=== PATIENT | male | born 1950 | race Caucasian/White ===

== ENCOUNTER 2016-10-18 14:24 | Observation (INO) ==
[2016-10-18] MEDS ORDERED: Aspirin 81 MG TAB.CHEW PO ONE (14:35)
--- NOTE | 2016-10-18 14:38 | Emergency Department Note ---
Disposition Clinical Impression: ACS (acute coronary syndrome) Chest pain Qualifiers: Chest pain type: unspecified Qualified Code(s): R07.9 - Chest pain, unspecified Disposition: Admitted As Inpatient Time of Disposition: 15:12 Chest Pain HPI - General Chief Complaint: ED Chest Pain Stated Complaint: Chest pain, MARIPOSA, dizziness Time Seen by Provider: 10/18/16 14:35 Source: patient Mode of arrival: ambulatory Limitations: no limitations Vital Signs Reviewed: Yes Nursing Notes Reviewed: Yes - History of Present Illness HPI Narrative: 65-year-old male who comes in complaining of some chest pain off and on for the last week. Patient states it's exertional in nature when he gets up and does anything he develops pain gets better with rest. Pt complaint: chest pain Onset (ago): day(s) Duration: intermittent Onset: during exertion Pain Location: substernal, left chest Severity: mild, moderate Severity scale (1-10): 2 Quality: tightness, aching Pain Radiation: none Worsens with: exertion Associated symptoms: Reports: dyspnea Treatments prior to arrival chest pain: none - Related Data Home Medications Medication Instructions Recorded Confirmed Albuterol Sulfate [Albuterol 2 puff IH Q6HR 04/06/15 10/18/16 Inhaler] Glimepiride [Amaryl] 4 mg PO BID 04/06/15 10/18/16 Lisinopril 20 mg PO DAILY 04/06/15 10/18/16 Simvastatin 40 mg PO DAILY 04/06/15 10/18/16 Gabapentin [Neurontin] 600 mg PO TID 10/18/16 10/18/16 Mesalamine [Apriso] 0.375 gm PO DAILY 10/18/16 10/18/16 Oxycodone HCl [Roxicodone 30 MG 30 mg PO Q6HR PRN 10/18/16 10/18/16 Immed Release] Topiramate [Topamax] 50 mg PO BID 10/18/16 10/18/16 Allergies Allergy/AdvReac Type Severity Reaction Status Date / Time No Known Allergies Allergy Verified 10/18/16 15:28 All systems ED: reviewed and negative except as stated. Constitutional: Denies: fever, chills, weakness, weight change Eyes: Denies: eye pain, eye discharge, vision change ENT ED: Denies: ear pain, throat pain, dental pain, hearing loss, epistaxis, congestion, dysphagia Cardiovascular: Reports: chest pain. Denies: palpitations, dyspnea on exertion , edema, syncope Respiratory: Denies: cough, dyspnea, wheezes, hemoptysis, stridor Gastrointestinal: Denies: abdominal pain, nausea, vomiting, diarrhea, constipation, hematemesis, melena, hematochezia Genitourinary: Denies: urgency, dysuria, frequency, hematuria Musculoskeletal: Denies: back pain, neck pain, arthralgia, myalgia Integumentary: Denies: rash, abrasion, lesions Neurological: Denies: headache, weakness, numbness, paresthesias, confusion, abnormal gait, vertigo Psychiatric: Denies: anxiety, depression, suicidal thoughts, homicidal thoughts , auditory hallucinations, visual hallucinations Endocrine: Denies: fatigue Hematological/Lymphatic: Denies: easy bleeding, easy bruising Allergic/Immunologic: Denies: facial swelling, urticaria Chest Pain PMH - Past Medical History Medical history: Reports: arthritis, diabetes, hyperlipidemia, hypertension, other Surgical history: Reports: orthopedic, other, other Psychiatric history: Reports: PTSD - Social History Smoking Status: Former smoker Alcohol use: Reports: rarely Drug use: Reports: none Physical Exam - General Limitations: no limitations General appearance: alert - Head Head exam: atraumatic, normocephalic, normal inspection - Eye Eye exam: Present: normal appearance, PERRL, EOMI - ENT ENT exam: normal exam, normal oropharynx, mucous membranes moist - Neck Neck exam: Present: normal inspection, full ROM, trachea midline - Chest Chest inspection: Present: normal inspection, symmetric chest wall rise - Respiratory Respiratory exam: Present: normal lung sounds bilaterally - Cardiovascular Cardiovascular exam: Present: regular rate, normal rhythm, normal heart sounds - Abdominal Exam Abdominal exam: Present: soft, Non-Tender. Absent: tenderness, distention, guarding, rebound, rigidity - Extremities Exam Extremities exam: Present: normal inspection, full ROM. Absent: tenderness, pedal edema - Expanded Lower Extremity Exam Neurovascular/Tendon exam: Absent: motor deficit, sensory deficit, tendon deficit Gait: observed and normal - Back Exam Back exam: Present: normal inspection - Neurological Exam Neurological exam: Present: alert, oriented X3 - Psychiatric Psychiatric exam: Present: normal affect, normal mood - Skin Skin exam: Present: warm, dry, intact, normal color Course - Reevaluation(s) Reevaluation #1: 65-year-old male who describes exertional chest pain that gets better with rest. Getting worse over the last week or so. No history of previous cardiac problems. The patient describes angina. Patient will be admitted to the hospitalist. We will start ACS heparin. The patient is currently pain-free. Time: 15:29 Reevaluation #2: I had a recurrent originally ordered heparin for this patient based on symptomatology however the hospitalist was here and asked me to stop the heparin order which we did patient did not get any heparin. She also requested we order Lipitor 40 mg. Time: 16:03 - Consultations Consultation #1: Discussed with Dr. Rasheed, admit. Time: 15:31 Vital Signs Temperature 97.3 F L 10/18/16 14:29 Pulse Rate 80 10/18/16 14:29 Respiratory Rate 18 10/18/16 14:29 Blood Pressure 151/81 10/18/16 14:29 O2 Sat by Pulse Oximetry 97 10/18/16 14:29 Temperature 97.3 F L 10/18/16 14:29 Pulse Rate 79 10/18/16 15:33 Respiratory Rate 18 10/18/16 15:33 Blood Pressure 122/76 10/18/16 15:33 O2 Sat by Pulse Oximetry 97 10/18/16 15:33 Oxygen Delivery Oxygen Delivery Room Air Chest Pain - Lab Data Result diagrams: 10/18/16 14:37 10/18/16 14:37 Lab Results 10/18/16 10/18/16 10/18/16 Range/Units 14:37 14:37 14:37 WBC 6.8 (4.3-11.1) K/mcL RBC 5.01 (4.19-5.50) M/mcL Hgb 14.3 (12.9-16.9) g/dL Hct 42.1 (37.5-50.1) % MCV 84.0 (83.0-100.0) fL MCH 28.5 (28.0-33.3) pg MCHC 34.0 (31.6-35.5) g/dL RDW 14.3 (11.5-14.5) % Plt Count 225 (140-400) K/mcL MPV 9.5 (9.4-12.4) fL Immature Gran % 0.3 (0-4) % Seg Neutrophils % 61.9 % Lymphocytes % 27.2 % Monocytes % 8.1 % Eosinophils % 1.9 % Basophils % 0.6 % Neutrophils # 4.2 (1.6-8.9) K/mcL Lymphocytes # 1.8 (0.6-4.6) K/mcL Monocytes # 0.6 (0.0-1.3) K/mcL Eosinophils # 0.1 (0.0-0.6) K/mcL Basophils # 0.0 (0.0-0.2) K/mcL PT 12.6 H (9.4-12.1) Seconds INR 1.2 APTT 30.2 (26.0-36.0) Seconds Sodium 137 (136-145) mEq/L Potassium 3.1 L (3.5-4.5) mEq/L Chloride 112 H (98-109) mEq/L Carbon Dioxide 17 L (19-29) mEq/L BUN 9 (8-26) mg/dL Creatinine 0.68 L (0.72-1.25) mg/dL Est GFR ( Amer) > 60 (> 60) Est GFR (Non-Af Amer) > 60 (> 60) BUN/Creatinine Ratio 13 (6-26) Glucose 82 (70-99) mg/dL Calculated Osmolality 282 (280-300) Calcium 7.8 L (8.6-10.8) mg/dL Troponin I (0-0.03) ng/mL 10/18/16 Range/Units 14:37 WBC (4.3-11.1) K/mcL RBC (4.19-5.50) M/mcL Hgb (12.9-16.9) g/dL Hct (37.5-50.1) % MCV (83.0-100.0) fL MCH (28.0-33.3) pg MCHC (31.6-35.5) g/dL RDW (11.5-14.5) % Plt Count (140-400) K/mcL MPV (9.4-12.4) fL Immature Gran % (0-4) % Seg Neutrophils % % Lymphocytes % % Monocytes % % Eosinophils % % Basophils % % Neutrophils # (1.6-8.9) K/mcL Lymphocytes # (0.6-4.6) K/mcL Monocytes # (0.0-1.3) K/mcL Eosinophils # (0.0-0.6) K/mcL Basophils # (0.0-0.2) K/mcL PT (9.4-12.1) Seconds INR APTT (26.0-36.0) Seconds Sodium (136-145) mEq/L Potassium (3.5-4.5) mEq/L Chloride (98-109) mEq/L Carbon Dioxide (19-29) mEq/L BUN (8-26) mg/dL Creatinine (0.72-1.25) mg/dL Est GFR ( Amer) (> 60) Est GFR (Non-Af Amer) (> 60) BUN/Creatinine Ratio (6-26) Glucose (70-99) mg/dL Calculated Osmolality (280-300) Calcium (8.6-10.8) mg/dL Troponin I 0.00 (0-0.03) ng/mL - EKG Data EKG attestation: Yes I reviewed and interpreted this EKG. EKG shows normal: sinus rhythm Rate: normal Rhythm: NSR Interpretation: no acute changes Heart Score - Score History: Moderately Suspicious EKG: Normal Age: 45-65 Risk Factors: 1-2 risk factors Troponin: Less than normal limit HEART Score Total: 3 Critical Care Time Critical Care Time: Yes Total Critical Care Time: 30 Attestation: The high probability of a clinically significant, sudden or life threatening deterioration of the [cardiovascular] system(s) required my full and direct attention, intervention and personal management. The aggregate critical care time was [30] minutes. This time is in addition to time spent performing reported procedures but includes the following: [x] Data Review and interpretation [x] Patient assessment and monitoring of vital signs [x] Documentation [x] Medication orders and management
[2016-10-18 14:51] LABS: Basophils % 0.6 %; Eosinophils # 0.1 K/mcL (0.0-0.6); Eosinophils % 1.9 %; Hematocrit 42.1 % (37.5-50.1); Hemoglobin 14.3 g/dL (12.9-16.9); Immature Granulocytes % 0.3 % (0-4); Lymphocytes # 1.8 K/mcL (0.6-4.6); Lymphocytes % 27.2 %; Mean Corpuscular Hemoglobin 28.5 pg (28.0-33.3); Mean Platelet Volume 9.5 fL (9.4-12.4); Monocytes # 0.6 K/mcL (0.0-1.3); Monocytes % 8.1 %; Neutrophils # 4.2 K/mcL (1.6-8.9); Platelet Count 225 K/mcL (140-400); Red Blood Count 5.01 M/mcL (4.19-5.50); Red Cell Distribution Width 14.3 % (11.5-14.5); Segmented Neutrophils % 61.9 %
[2016-10-18 15:03] LABS: BUN/Creatinine Ratio 13 (6-26); Blood Urea Nitrogen 9 mg/dL (8-26); Calcium 7.8 mg/dL (8.6-10.8); Carbon Dioxide 17 mEq/L (19-29); Chloride 112 mEq/L (98-109); Glucose 82 mg/dL (70-99); INR 1.2; Osmolality,Calculated 282 (280-300); Potassium 3.1 mEq/L (3.5-4.5); Prothrombin Time 12.6 Seconds (9.4-12.1); Sodium 137 mEq/L (136-145); eGFR For African Americans > 60 (> 60); eGFR For Non-African Americans > 60 (> 60)
[2016-10-18 15:05] LABS: Activated Partial Thrombo Time 30.2 Seconds (26.0-36.0)
[2016-10-18] MEDS ORDERED: *HR* Heparin 5,000 UNIT/ML VIAL IVP ONE (15:27)
[2016-10-18] MEDS ORDERED: *HR* Heparin 5,000 UNIT/ML VIAL IVP PRN ×2 (15:27)
[2016-10-18] MEDS ORDERED: Heparin 25,000 UNIT/500 ML D5W 25,000 UNIT/500 ML MLS IVC SCH (15:30)
[2016-10-18] MEDS ORDERED: Naloxone 0.4 MG/ML INJ IVP PRN (16:07)
[2016-10-18] MEDS ORDERED: *HR* Morphine 2 MG/ML SYRINGE IVP PRN (16:07)
[2016-10-18] MEDS ORDERED: Ondansetron 4 MG/2 ML VIAL IVP PRN (16:07)
[2016-10-18] MEDS ORDERED: Nitroglycerin 0.4 MG TAB.SUBL SL PRN (16:09)
[2016-10-18] MEDS ORDERED: *HR* OxyCODONE Immed Rel 15 MG TABLET PO PRN (16:11)
[2016-10-18] MEDS ORDERED: *HR* Dextrose 50 % in Water (Syg) 50 ML SYRINGE IVP PRN (16:12)
[2016-10-18] MEDS ORDERED: D5% in Water 1,000 ML IVC PRN (16:12)
[2016-10-18] MEDS ORDERED: Dextrose Gel 15 GM PO PRN ×2 (16:12)
--- NOTE | 2016-10-18 16:22 | Internal Med History&Physical ---
Date of Encounter: 10/18/16 Time of Encounter: 14:00 Assessment and Plan (1) Chest pain Current visit: Yes Status: Acute Given clinical presentation and associated risk factors, will rule out ACS monitor serial TNI and EKG EKG: NSR First TNI negative f/u 2D echo to evaluate LVEF nuclear stress in am if above tests are positive for any cardiac etiology, consider cardiology eval continue ASA, Statin Nitroglycerin SL prn chest pain NPO after midnight for nuclear stress test in am currently saturating well on room air, if SOB or hypoxia occurs, O2 supplementation as needed Qualifiers: Chest pain type: unspecified Qualified Code(s): R07.9 - Chest pain, unspecified (2) Dizziness Current visit: Yes Status: Acute Will rule out orthostatic hypotension given history will obtain orthostatic vitals closely monitor no dizziness reported at this time if orthostatics negative and cardiac work up negative, consider b/l carotid dopplers to r/o carotid stenosis (3) Metabolic acidosis Current visit: Yes Status: Acute Normal anion gap metabolic acidosis with hyperchloremia Can be multifactorial, given history of GI losses (UC with diarrhea) or Hypokalema (concern for RTA) will closely monitor Clinically asymptomatic if metabolic acidosis worsens and bicarb deficit increases, will supplement bicarb K supplemented will continue to monitor electrolytes and replace as needed (4) Hypokalemia Current visit: Yes Status: Acute K supplemented continue to monitor electrolytes and replace as needed (5) Hypertension Current visit: Yes Status: Chronic BP within acceptable range will continue home medications Qualifiers: Hypertension type: essential hypertension Qualified Code(s): I10 - Essential (primary) hypertension (6) Hyperlipidemia Current visit: Yes Status: Chronic continue statin Qualifiers: Hyperlipidemia type: unspecified Qualified Code(s): E78.5 - Hyperlipidemia , unspecified (7) Diabetes Current visit: No Status: Chronic BG within acceptable range hold oral antihyperglycemic agents will start ss insulin algorithm monitor FS and BG ADA diet Qualifiers: Diabetes mellitus type: type 2 Diabetes mellitus complication status: without complication Diabetes mellitus dispatcher relay insulin use: without dispatcher relay use Qualified Code(s): E11.9 - Type 2 diabetes mellitus without complications (8) DVT prophylaxis Current visit: No Status: Acute Heparin SQ (9) Obesity (BMI 30.0-34.9) Current visit: Yes Status: Chronic Internal Medicine - H&P: HPI Chief complaint: chest pain Admitted From: Home Plans for Post Hospital Care: Home History of present illness: Mr. Zamora is a 65 year old male with PMH of DM, HTN, HLD, arthritis, Ulcerative colitis, obesity who is admitted for evaluation of chest pain. Patient reports of having localized substernal chest pain for the last few weeks with ambulation associated with shortness of breath. He states he recently is tapering down his opiods and initially thought he was going through opioid withdrawals, however as he researched more online, the symptoms were concerning for heart disease due to which he came to the ER for further evaluation. Pain is brought upon with movement and is pressure like and relieved at rest. States for the last few days, he has also been experiencing mild dizziness as he gets up from sitting to standing position. At this time he is resting in bed and denies any chest pain. No family cardiac history reported. Reports of having a nuclear stress test in the past but does not recall the reason and denies any prior symptoms consistent with current presentation. Also reports of having UC and has on and off diarrhea, not present at this time. At this time he is resting in bed and denies any headache, dizziness, lightheadness, chest pain, sob, abd pain, n/v, fever, or chills. Social Hx: Former smoker, smoked for 5 years and quit 40years ago Code status: Full code Past Med Surg Social Fam HX - Past Medical History Medical history: arthritis, diabetes, hyperlipidemia, hypertension, other Psychiatric history: PTSD - Past Surgical History Surgical History: orthopedic, other, other - Social History Smoking Status: Former smoker Smokeless Tobacco Status: No Alcohol use: rarely Drug use: none - Family History Father Living Status: Hx Family Cancer: Yes (leukemia) Mother Living Status: Hx Family Respiratory Disorders: Yes Internal Medicine - H&P: Meds Albuterol Sulfate [Albuterol Inhaler] 2 puff IH Q6HR 04/06/15 [History] Glimepiride [Amaryl] 4 mg PO BID 04/06/15 [History] Lisinopril 20 mg PO DAILY 04/06/15 [History] Simvastatin 40 mg PO DAILY 04/06/15 [History] Gabapentin [Neurontin] 600 mg PO TID 10/18/16 [History] Mesalamine [Apriso] 0.375 gm PO DAILY 10/18/16 [History] Oxycodone HCl [Roxicodone 30 MG Immed Release] 30 mg PO Q6HR PRN 10/18/16 [ History] Topiramate [Topamax] 50 mg PO BID 10/18/16 [History] Allergies No Known Allergies Allergy (Verified 10/18/16 15:28) All Systems PM: A 10-system review of systems was performed and is negative for pertinent findings except as documented above in the HPI. - Constitutional Constitutional: as per HPI - Constitutional Vitals: Temp Pulse Resp BP Pulse Ox 97.3 F L 79 18 128/82 97 10/18/16 14:29 10/18/16 15:33 10/18/16 16:06 10/18/16 16:06 10/18/16 15:33 General appearance: Present: cooperative, A&O X 3, pleasant, no acute distress, obese, answers questions appropriately - Head Head exam: Present: atraumatic, normocephalic - Eye Eye exam: Present: EOMI, normal appearance, conjuntiva pink, sclera anicteric - Respiratory Respiratory exam: Present: CTAB. Absent: accessory muscle use, rales, rhonchi, wheezes - Cardiovascular Cardiovascular exam: Present: RRR, +S1, +S2. Absent: diastolic murmur, gallop, rubs, systolic murmur - GI/Abdominal GI/Abdominal exam: Present: normal bowel sounds, soft, no peritoneal signs. Absent: distended, tenderness - Extremities Exam Extremities exam: Present: warm, radial pulses palpable and symetrical. Absent : calf tenderness, cyanotic, pedal edema - Neurological Exam Neurological exam: Present: alert, oriented X3 - Psychiatric Psychiatric exam: Present: normal affect, normal mood Internal Med - H&P Results - Labs CBC & Chem 7: 10/18/16 14:37 10/18/16 14:37
[2016-10-18] MEDS: Insulin LISPRO 300 UNITS/3 ML VIAL SQ SCH (17:01)
[2016-10-18] MEDS ORDERED: Acetaminophen 325 MG TABLET PO PRN (17:02)
[2016-10-18] MEDS: Gabapentin 300 MG CAPSULE PO SCH (20:22)
[2016-10-18] MEDS: Topiramate 25 MG TABLET PO SCH (20:23)
[2016-10-18] MEDS ORDERED: Insulin LISPRO 300 UNITS/3 ML VIAL SQ SCH (21:00)
[2016-10-18] MEDS: *HR* Heparin 5,000 UNIT/ML VIAL SQ SCH (22:33)
[2016-10-19 04:34] LABS: Basophils % 0.7 %; Eosinophils # 0.1 K/mcL (0.0-0.6); Eosinophils % 2.1 %; Hematocrit 39.8 % (37.5-50.1); Hemoglobin 13.2 g/dL (12.9-16.9); Immature Granulocytes % 0.2 % (0-4); Lymphocytes # 1.9 K/mcL (0.6-4.6); Lymphocytes % 34.4 %; Mean Corpuscular HGB Conc 33.2 g/dL (31.6-35.5); Mean Corpuscular Hemoglobin 28.4 pg (28.0-33.3); Mean Corpuscular Volume 85.8 fL (83.0-100.0); Mean Platelet Volume 9.8 fL (9.4-12.4); Monocytes # 0.5 K/mcL (0.0-1.3); Monocytes % 9.4 %; Platelet Count 199 K/mcL (140-400); Red Blood Count 4.64 M/mcL (4.19-5.50); Red Cell Distribution Width 14.5 % (11.5-14.5); Segmented Neutrophils % 53.2 %
[2016-10-19 04:49] LABS: Hemoglobin A1C 6.3 %
[2016-10-19 04:57] LABS: BUN/Creatinine Ratio 13 (6-26); Blood Urea Nitrogen 11 mg/dL (8-26); Carbon Dioxide 21 mEq/L (19-29); Chloride 110 mEq/L (98-109); Chol/HDL Ratio 3.8 (0-4.9); Cholesterol 115 mg/dL (< 200); Glucose 130 mg/dL (70-99); HDL Cholesterol 30 mg/dL (40-59); LDL Cholesterol,Calculated 66 mg/dL (0-99); Osmolality,Calculated 287 (280-300); Phosphorous 4.2 mg/dL (2.3-4.7); Potassium 3.7 mEq/L (3.5-4.5); Sodium 138 mEq/L (136-145); Triglycerides 95 mg/dL (< 150); eGFR For African Americans > 60 (> 60); eGFR For Non-African Americans > 60 (> 60)
[2016-10-19 04:58] LABS: Calcium 9.1 mg/dL (8.6-10.8)
[2016-10-19] MEDS: *HR* Heparin 5,000 UNIT/ML VIAL SQ SCH ×2 (05:40→15:38)
[2016-10-19] MEDS: Insulin LISPRO 300 UNITS/3 ML VIAL SQ SCH ×3 (07:19→16:58)
[2016-10-19] MEDS ORDERED: Regadenoson 0.4 MG/5 ML SYRINGE IVP ONE (07:34)
[2016-10-19] MEDS ORDERED: MESALAMINE 0.375 GM PO SCH (09:00)
[2016-10-19] MEDS ORDERED: Aspirin Enteric Coated 81 MG Tablet PO SCH (09:00)
[2016-10-19] MEDS ORDERED: Lisinopril 20 MG TABLET PO SCH (09:00)
[2016-10-19] MEDS ORDERED: Perflutren Lipid Microsphere 1.3 ML in 0.9 % Sodium Chloride 8.7 ML IVP ONE (09:30)
[2016-10-19] MEDS: Gabapentin 300 MG CAPSULE PO SCH ×2 (10:27→15:38)
[2016-10-19] MEDS: Topiramate 25 MG TABLET PO SCH (10:27)
--- NOTE | 2016-10-19 10:31 | Electrocardiograph Report ---
[place] [id number] Test Date: 2016-10-18 Pat Name: Jason Zamora Department: 104 Room: 3B Gender: M Sketch Maker: : 1950 Requested By: Hero Sutton Order Number: [id number] Reading MD: Giovani Osei Measurements Intervals Morgan Rate: 87 P: 51 WV: 176 QRS: 31 QRSD: 98 T: 29 QT: 349 QTc: 394 Interpretive Statements SINUS RHYTH Electronically Signed On 10-19-2016 10:29:49 EDT by Giovani Osei
--- NOTE | 2016-10-19 10:33 | Nuclear Medicine Stress Report ---
Regadenoson Nuclear Stress Name: Jason Zamora Date of Study: 10/19/2016 Date: 1950 Ht: 74.0 in Medical Record#: [id number] Age: 65 Wt: 276.0 lb Gender: Male Order #: [id number] Location: [facility] Room: [facility] Supervising Provider: Kieran Martinez CNP Reading Physician: Jason Lamar MD, [facility] Ordering Physician: Winnie Kaye CNP Primary Care Physician: Atilio Rayo DO Stress Technologist: Denise Cesar, [facility] Tender: Wayne Galvan Indications: Chest Pain Impression: No significant ECG changes with regadenoson. Gated LVEF = 58%. Perfusion imaging was negative for ischemia or infarct. History: Hypertension Diabetes Hypercholesteremia Stress Test Summary: Stress Test Type: Pharmacologic Regadenoson 0.4mg/5ml given IV Baseline Information: Initial Heart Rate: 73 Blood Pressure: 128/84 Stress Information: Test Terminated Due to (primary): As per protocol Maximum Blood Pressure: 120/80 Maximum Heart Rate: 95 Percent Maximum Heart Rate Achieved: 61 Double Product: [id number] Symptoms: No chest symptoms Nuclear Summary: SPECT myocardial perfusion imaging using Tc99m Sestamibi given intravenously was performed at rest and following cardiac stress testing. The resting images were obtained following initial dose of 11.4 mCi. Following stress an additional dose of 34.6 mCi was given at peak exercise or 30 seconds post regadenoson infusion. Findings: Stress Note * Resting ECG demonstrated normal sinus rhythm. * No baseline arrhythmias were noted. * Patient had no chest pain during stress. * No arrhythmias were noted during stress. * No significant ECG changes with regadenoson. Hemodynamic responses * Normal hemodynamic responses to pharmacologic stress. Study Quality * Study quality is average. Gated EF % * Gated LVEF = 58%. Left Ventricle * The left ventricle is not dilated. * Normal Segmental Perfusion in rest. * Normal segmental perfusion in stress. TID * No evidence of transient ischemic dilatation. Updated by Jason Lamar MD, [facility] on 10/19/2016 10:27:19 AM electronically signed on 10/19/2016 10:27:42 AM with status of Final
--- NOTE | 2016-10-19 10:48 | ECHO - Doppler Report ---
Echo with Imaging Enhancement Agent Name: Jason Zamora Date of Study: 10/19/2016 Date: 1950 Ht: 70.0 in Medical Record#: [id number] Age: 65 Wt: 270.0 lb Gender: Male BSA: 2.37 Order #: [id number] Location: [facility] Room #: [id number] Reading Physician: Jason Lamar MD, [facility] Electrical Test Engineer: Cody Leblanc Ordering Physician: Loretta Bullock MD Primary Physician: Atilio Rayo DO Indications: Evaluate left ventricle function Impressions: Technically sub-optimal due to poor echocardiographic windows. Echo contrast was used. Normal LV systolic function, LVEF 60%. Normal left ventricular diastolic function. Normal right ventricular size and function. Cardiac valves were not well visualized. No evidence of significant valvular dysfunction. Pulmonic valve function was not assessed. Unable to estimate RVSP due to lack of TR jet. Left Ventricular Wall Motion: Rest Echo Findings All wall segments showed normal motion. Findings: Study Quality * Technically sub-optimal due to poor echocardiographic windows. Echo contrast was used. ECG Findings * Normal sinus rhythm. Left Ventricle * Normal LV systolic function, LVEF 60%. * Normal LV chamber size and wall thickness. * Normal left ventricular diastolic function. Right Ventricle * Normal right ventricular size and function. Left Atrium * Normal left atrial size. Right Atrium * Normal right atrial size. Aorta * Normally sized aortic root. Pericardium * There is no pericardial effusion present. IVC * The IVC is not well evaluated. Aortic Valve * Aortic valve not well visualized. * No aortic stenosis. * No aortic regurgitation. Mitral Valve * Normal mitral valve structure. * No mitral stenosis. * No mitral regurgitation. Tricuspid Valve * Tricuspid valve not well visualized. * No tricuspid stenosis. * Trace tricuspid regurgitation. * Unable to estimate RVSP due to lack of TR jet. Pulmonic Valve * Pulmonic valve not well visualized. * Function not assessed. History Hypertension Diabetes Hypercholesteremia Contrast: Definity 1.3 ml in 8.7 ml of saline 5 ml. Measurements: BP: 109/ 67 2D Normal Values IVSd: .90 cm 0.6 - 1.0 cm LVIDd: 5.00 cm 3.7 - 5.6 cm LVPWd: 1.00 cm 0.6 - 1.1 cm LVIDs: 3.70 cm 1.5 - 3.6 cm AO: 3.70 cm < 4.0 cm %FS: 26.00 cm >25 % LA volume: 58 Mitral Valve Peak E:.62 m/sec Peak A:.61 m/sec E/A Ratio:1 Updated by Jason Lamar MD, [facility] on 10/19/2016 10:43:11 AM electronically signed on 10/19/2016 10:43:34 AM with status of Final Wall Motion [place]: 1=Normal, 2=Hypokinesis, 3=Akinesis, 4=Dyskinesis, 5=Aneurysmal, 6=Hyperkinetic, X=Not Visualized (Blank)=Missing
[2016-10-19 15:21] VITALS: BP 129/68
--- NOTE | 2016-10-19 18:19 | Discharge Summary ---
Date of Encounter: 10/19/16 Time of Encounter: 17:00 - Discharge Diagnosis (1) Chest pain Priority: Primary Status: Resolved Comments: Patient had chest pain with exertion. Chest x-ray negative. Stress test negative. Echocardiogram unremarkable. ACS ruled out. Upon further discussion with the patient, his primary care provider had recently decreased the amount of pain medication he wrote and the patient had gone without pain medication for approximately 2 weeks. Strong suspect withdrawal as his chest pain with exertion abated after he was given one of his pain pills. Qualifiers: Chest pain type: unspecified Qualified Code(s): R07.9 - Chest pain, unspecified (2) Withdrawal from opioids Priority: Primary Status: Suspected (3) Chronic pain Priority: Secondary Status: Chronic Comments: OARRS report checks out. His primary care provider decreased amount of his oxycodone 30s in September of this year. (4) Diabetes Priority: Secondary Status: Chronic Comments: Controlled with an A1c of 6.3%. Continue follow-up outpatient. Qualifiers: Diabetes mellitus type: type 2 Diabetes mellitus complication status: without complication Diabetes mellitus retirement insulin use: without retirement use Qualified Code(s): E11.9 - Type 2 diabetes mellitus without complications (5) Diverticulosis Priority: Secondary Status: Chronic Qualifiers: Diverticulosis site: unspecified location Diverticulosis bleeding: diverticulosis without bleeding Qualified Code(s): K57.90 - Diverticulosis of intestine, part unspecified, without perforation or abscess without bleeding (6) DVT prophylaxis Priority: Primary Status: Acute Comments: Subcutaneous heparin while admitted (7) Hypertension Priority: Secondary Status: Chronic Comments: Controlled after his pain medication was resumed. Follow palpation. Qualifiers: Hypertension type: essential hypertension Qualified Code(s): I10 - Essential (primary) hypertension (8) Hyperlipidemia Priority: Secondary Status: Chronic Comments: Lipid panel unremarkable. Recommend continue statin and low-cholesterol diet. Qualifiers: Hyperlipidemia type: unspecified Qualified Code(s): E78.5 - Hyperlipidemia , unspecified (9) Metabolic acidosis Priority: Primary Status: Resolved (10) Hypokalemia Priority: Primary Status: Resolved (11) Dizziness Priority: Primary Status: Resolved - Discharge Medications Home Medications: Albuterol Sulfate [Albuterol Inhaler] 2 puff IH Q6HR 04/06/15 [History] Glimepiride [Amaryl] 4 mg PO BID 04/06/15 [History] Lisinopril 20 mg PO DAILY 04/06/15 [History] Simvastatin 40 mg PO DAILY 04/06/15 [History] Gabapentin [Neurontin] 600 mg PO TID 10/18/16 [History] Mesalamine [Apriso] 0.375 gm PO DAILY 10/18/16 [History] Oxycodone HCl [Roxicodone 30 MG Immed Release] 30 mg PO Q6HR PRN 10/18/16 [ History] Topiramate [Topamax] 50 mg PO BID 10/18/16 [History] Allergies/Adverse Reactions: Allergies No Known Allergies Allergy (Verified 10/18/16 15:28) Procedures/tests Complete & Pending: Procedures Performed prior 72 hours Category Date Time Status NM [place] perf SPECT multi [NM] Routine Exams 10/18/16 16:11 Taken ECG 12 lead ECG [ECG] AM 0600 Y 10/19/16 06:00 Ordered EV echocardiogram w enhance Stat Y 10/19/16 16:10 Completed SP pharm nuclear stress Routine Y 10/19/16 08:00 Completed Date of admission: 10/18/16 15:39 Primary care physician: Atilio Rayo DO Discharging clinician: Winnie Kaye Anticipated date of discharge: 10/19/16 - Patient Status Disposition: Home, Self-Care Condition: Fair Functional capacity at discharge: independent ambulation Overall status at discharge: patient is back to baseline - Discharge Instructions Follow Up With: Atilio Rayo DO [Primary Care Provider] - Additional Instructions: Follow-up with primary care provider in one to 2 weeks - Diet and Activity Activity: increase activity as tolerated Diet: diabetic diet, low fat, low cholesterol, low salt diet Hospital course: Mr. Zamora is a 65 year old male with past medical history of diabetes, hypertension, hyperlipidemia, ulcerative colitis, PTSD, chronic pain. Patient presented to the emergency department chief complaint localized substernally located chest pain for the past few weeks prior to presentation that was worsened with ambulation and associated with shortness of breath. Of note, patient's primary care provider had decreased the number of his oxycodone 30 mg tablets that he received per month from 120 down to 90 and the patient stating that he ran out of this medication 2 weeks prior to presentation which is when the symptoms started. He initially thought it was withdrawal but after doing a Internet search, he was convinced that he had blockages in his heart which prompted his presentation to the emergency department. Workup in the emergency department unremarkable. Chest x-ray negative. Patient was admitted to the hospitalist service for further evaluation and management. Troponins negative 3. Echocardiogram unremarkable with ejection fraction of 60%. Patient had a nuclear stress test that was negative for ischemia or infarct. Acute coronary syndrome ruled out. Upon further discussion with the patient, he stated he had not had any pain medication for 2 weeks. He was given one of his pain medication pills on the day of discharge and was able to ambulate freely around the unit without any chest pain or shortness of breath. His dizziness and other symptoms resolved as well. Likely cause of his pain and chest tightness with ambulation was withdrawal. He has been on narcotic pain medication for at least 15 years. He was discharged home in stable condition with close outpatient follow-up recommended. ITS Impressions Chest X-Ray 10/18/16 14:35 IMPRESSION: No acute cardiopulmonary process. D/ / 10/18/2016 14:54:37 Ceci Nguyen MD / stefanie Interpreting Provider: Ceci Nguyen MD Echo with imaging enhancement agent impressions: Technically suboptimal due to poor echocardiographic windows. Echo contrast was used. Normal LV systolic function, LVEF is 60%. Normal left ventricular diastolic function. Normal right ventricular size and function. Cardiac valves are not well visualized. No evidence of significant valvular dysfunction. Pulmonic valve function was not assessed. Unable to estimate RVSP due to lack of TR jet. Regadenosen nuclear stress test impression: No significant ECG changes with Regadenosen. Gated LVEF equals 58%. Perfusion imaging was negative for ischemia or infarct. - Time Spent with Patient Total time spent providing and/or coordinating discharge services: - Constitutional Vitals: Temp Pulse Resp BP Pulse Ox 98.2 F 15 14 129/68 96 10/19/16 15:11 10/19/16 15:11 10/19/16 15:11 10/19/16 15:11 10/19/16 15:11 General appearance: Present: cooperative, A&O X 3, pleasant, no acute distress, obese, answers questions appropriately - Head Head exam: Present: atraumatic, normocephalic - Eye Eye exam: Present: PERRL, conjuntiva pink, sclera anicteric Pupils: Present: PERRL - Neck Neck exam general surgery: Present: supple, trachea midline. Absent: lymphadenopathy - Respiratory Respiratory exam: Present: CTAB. Absent: accessory muscle use, rales, respiratory distress, rhonchi, wheezes - Cardiovascular Cardiovascular exam: Present: RRR, +S1, +S2. Absent: diastolic murmur, gallop, rubs, systolic murmur - GI/Abdominal GI/Abdominal exam: Present: normal bowel sounds, soft, no peritoneal signs. Absent: distended, tenderness - Extremities Exam Extremities exam: Present: warm, radial pulses palpable and symetrical. Absent : calf tenderness, cyanotic, pedal edema - Neurological Exam Neurological exam: Present: alert, CN II-XII intact, normal gait, oriented X3, no focal deficits, strengths equal and symetr throughout. Absent: pronater drift, facial droop, speech deficit - Skin Skin exam: Present: dry, intact, normal color, warm
== END 2016-10-19 19:42 | disposition home or self-care (01) ==
LOC: EMEROO 14:24 → 3BNU 14:24
PROVIDERS: ADMIT Internal Medicine; ATTEND Nurse Practitioner Family

== ENCOUNTER 2016-11-20 21:42 | Observation (INO) ==
[2016-11-20 22:51] LABS: Basophils % 0.8 %; Eosinophils # 0.2 K/mcL (0.0-0.6); Eosinophils % 3.2 %; Immature Granulocytes % 0.4 % (0-4); Lymphocytes # 1.5 K/mcL (0.6-4.6); Lymphocytes % 29.2 %; Mean Corpuscular HGB Conc 33.3 g/dL (31.6-35.5); Mean Corpuscular Volume 87.1 fL (83.0-100.0); Mean Platelet Volume 10.4 fL (9.4-12.4); Monocytes # 0.3 K/mcL (0.0-1.3); Monocytes % 6.4 %; Platelet Count 204 K/mcL (140-400); Red Blood Count 4.48 M/mcL (4.19-5.50); Red Cell Distribution Width 13.7 % (11.5-14.5)
[2016-11-20 22:56] LABS: Alanine Aminotransferase 11 Units/L (0-55); Albumin 3.5 g/dL (3.5-5.0); Alkaline Phosphatase 73 Units/L (38-126); Aspartate Amino Transferase 14 Units/L (5-34); BUN/Creatinine Ratio 19 (6-26); Bilirubin,Total 0.5 mg/dL (0.2-1.2); Blood Urea Nitrogen 16 mg/dL (8-26); Calcium 8.8 mg/dL (8.6-10.8); Carbon Dioxide 22 mEq/L (19-29); Chloride 111 mEq/L (98-109); Globulin 3.4 g/dL (2.4-3.5); Glucose 302 mg/dL (70-99); Osmolality,Calculated 300 (280-300); Potassium 3.9 mEq/L (3.5-4.5); Sodium 139 mEq/L (136-145); Total Protein 6.9 g/dL (6.0-8.3); eGFR For African Americans > 60 (> 60); eGFR For Non-African Americans > 60 (> 60)
[2016-11-21] MEDS ORDERED: Aspirin 81 MG TAB.CHEW PO ONE (02:49)
--- NOTE | 2016-11-21 02:58 | Emergency Department Note ---
Disposition Clinical Impression: Atypical chest pain, Transient confusion, Hyperglycemia, Hypertension, Hyperlipidemia Disposition: Admitted As Inpatient General Adult HPI - General Chief complaint: ED Chest Pain Stated complaint: chest pain/sob/nausea/diaphoretic Source: patient Mode of arrival: ambulatory Limitations: no limitations Nursing Notes Reviewed: Yes Vital Signs Reviewed: Yes - History of Present Illness HPI Narrative: Pt is a 65 yo wm, hx of recent admission for cardiac eval for CP complaints. Pt returns tonight for 2 reported episodes of transient MS changes/confusion. Pt reports initial episode in am approx 0900, after waking went to the bathroom, and states he felt confused, unable to speak, trouble moving his arms/legs, and states he thought maybe his BS was low, ate something and rested, and sxs gradually resolved over approx 1-2 hours. Pt did have CP throughout this episode. Pt states he went about his normal activities throughout the day, then tonight had another similar episode in which he developed acute confusion, became diaphoretic, "couldn't think straight", felt like he was having trouble speaking, and unable to move. Lasted approx 1 hour, this time with gen GUTIÉRREZ, and then sxs resolved. Pt currently asymptomatic in ED. Awake and alert, oriented x 4, GCS=15 in eD. No slurred speech, no focal neuro deficits. Pain Scale: 4 - Related Data Home Medications Medication Instructions Recorded Confirmed Albuterol Sulfate [Albuterol 2 puff IH Q6HR PRN 04/06/15 10/18/16 Inhaler] Glimepiride [Amaryl] 4 mg PO BID 04/06/15 11/21/16 Lisinopril 20 mg PO DAILY 04/06/15 11/21/16 Simvastatin 40 mg PO DAILY 04/06/15 11/21/16 Mesalamine [Apriso] 1.5 gm PO QAM 10/18/16 11/21/16 Topiramate [Topamax] 50 mg PO BID 10/18/16 11/21/16 Aspirin [Lo-Dose Aspirin EC] 81 mg PO DAILY 11/21/16 11/21/16 Oxycodone HCl [Oxycontin] 20 mg PO Q6HR PRN 11/21/16 11/21/16 Previous Rx's Medication Instructions Recorded HydrOXYzine Pamoate [Vistaril] 50 mg PO BID PRN #12 capsule 11/22/16 Paroxetine [Paxil] 20 mg PO DAILY #30 tablet 11/22/16 Allergies Allergy/AdvReac Type Severity Reaction Status Date / Time No Known Allergies Allergy Verified 11/21/16 09:53 All systems ED: reviewed and negative except as stated. Constitutional: Reports: weakness. Denies: night sweats Eyes: Denies: vision change Cardiovascular: Reports: chest pain. Denies: edema, syncope Past Medical History - Past Medical History Medical history: Reports: arthritis, diabetes, hyperlipidemia, hypertension, other Surgical history: Reports: orthopedic, other, other Psychiatric history: Reports: PTSD - Social History Smoking Status: Former smoker Smokeless Tobacco Status: No Alcohol use: Reports: rarely Drug use: Reports: none Physical Exam - General Limitations: no limitations General appearance: alert, in no apparent distress - Head Head exam: atraumatic, normocephalic, normal inspection - Eye Eye exam: Present: normal appearance, PERRL, EOMI - ENT ENT exam: normal exam, normal oropharynx, mucous membranes moist - Neck Neck exam: Present: normal inspection, full ROM - Chest Chest inspection: Present: normal inspection, symmetric chest wall rise. Absent : tenderness - Respiratory Respiratory exam: Present: normal lung sounds bilaterally. Absent: respiratory distress - Cardiovascular Cardiovascular exam: Present: regular rate, normal rhythm, normal heart sounds - Abdominal Exam Abdominal exam: Present: soft, Non-Tender, normal bowel sounds. Absent: distention, guarding, rebound, rigidity - Extremities Exam Extremities exam: Present: normal inspection, full ROM, normal capillary refill. Absent: tenderness, pedal edema, calf tenderness - Back Exam Back exam: Present: normal inspection, paraspinal tenderness. Absent: CVA tenderness (R), CVA tenderness (L), vertebral tenderness - Neurological Exam Neurological exam: Present: alert, oriented X3, CN II-XII intact, reflexes normal. Absent: motor sensory deficit - Psychiatric Psychiatric exam: Present: normal affect, normal mood Course Course Narrative: PT with elev BP on arrival to ED. Asymptomatic throughout ED course, no recurrence of acute confusion/neuro sxs. CT head wnl, labs wnl. Concerned with possible tIA sxs at home x 2 today. Will admit pt for further eval/mgmt. Administered ASA following CT scanning, and pt and agree with plan Vital Signs Temperature 98.2 F 11/20/16 21:47 Pulse Rate 81 11/20/16 21:47 Respiratory Rate 20 11/20/16 21:47 Blood Pressure 180/75 11/20/16 21:47 O2 Sat by Pulse Oximetry 96 11/20/16 21:47 Temperature 98.0 F 11/22/16 15:21 Pulse Rate 73 11/22/16 15:21 Respiratory Rate 17 11/22/16 15:21 Blood Pressure 128/76 11/22/16 15:21 O2 Sat by Pulse Oximetry 96 11/22/16 15:21 Oxygen Delivery Oxygen Delivery Room Air Medical Decision Making - Medical Records Medical records reviewed: Yes I reviewed the patient's medical records. - Lab Data Lab results reviewed: Yes I reviewed the patient's lab results. Result diagrams: 11/22/16 05:13 11/22/16 05:13 Lab Results 11/20/16 11/20/16 11/20/16 Range/Units 22:18 22:18 22:18 WBC 5.0 (4.3-11.1) K/mcL RBC 4.48 (4.19-5.50) M/mcL Hgb 13.0 (12.9-16.9) g/dL Hct 39.0 (37.5-50.1) % MCV 87.1 (83.0-100.0) fL MCH 29.0 (28.0-33.3) pg MCHC 33.3 (31.6-35.5) g/dL RDW 13.7 (11.5-14.5) % Plt Count 204 (140-400) K/mcL MPV 10.4 (9.4-12.4) fL Immature Gran % 0.4 (0-4) % Seg Neutrophils % 60.0 % Lymphocytes % 29.2 % Monocytes % 6.4 % Eosinophils % 3.2 % Basophils % 0.8 % Neutrophils # 3.0 (1.6-8.9) K/mcL Lymphocytes # 1.5 (0.6-4.6) K/mcL Monocytes # 0.3 (0.0-1.3) K/mcL Eosinophils # 0.2 (0.0-0.6) K/mcL Basophils # 0.0 (0.0-0.2) K/mcL Sodium 139 (136-145) mEq/L Potassium 3.9 (3.5-4.5) mEq/L Chloride 111 H (98-109) mEq/L Carbon Dioxide 22 (19-29) mEq/L BUN 16 (8-26) mg/dL Creatinine 0.85 (0.72-1.25) mg/dL Est GFR ( Amer) > 60 (> 60) Est GFR (Non-Af Amer) > 60 (> 60) BUN/Creatinine Ratio 19 (6-26) Glucose 302 H (70-99) mg/dL Calculated Osmolality 300 (280-300) Calcium 8.8 (8.6-10.8) mg/dL Total Bilirubin 0.5 (0.2-1.2) mg/dL AST 14 (5-34) Units/L ALT 11 (0-55) Units/L Alkaline Phosphatase 73 (38-126) Units/L Troponin I 0.00 (0-0.03) ng/mL Serum Total Protein 6.9 (6.0-8.3) g/dL Albumin 3.5 (3.5-5.0) g/dL Globulin 3.4 (2.4-3.5) g/dL Albumin/Globulin Ratio 1.0 L (1.1-2.2) - Radiology Data Radiology results reviewed: Yes I reviewed the patient's radiology results. Chest X-Ray 11/20/16 21:50 IMPRESSION: No acute cardiopulmonary disease. D/ 11/20/2016 23:26:13 Eduar Noriega MD / stefanie Interpreting Provider: Eduar Noriega MD Head CT 11/21/16 01:12 IMPRESSION: No acute intracranial process identified. D/ / Michael Ortega MD / Michael Ortega MD Interpreting Provider: Michael Ortega MD - EKG Data EKG #1 EKG results narrative: Patient's EKG was interpreted by myself without benefit of for cardiology interpretation showing a normal sinus rhythm at 76 bpm patient with no acute ST or T-wave changes appreciated
[2016-11-21] MEDS ORDERED: *HR* OxyCODONE ER (12 HR) 20 MG TABLET PO PRN (10:03)
[2016-11-21] MEDS ORDERED: Acetaminophen 325 MG TABLET PO PRN (10:05)
[2016-11-21] MEDS ORDERED: Naloxone 0.4 MG/ML INJ IVP PRN (10:05)
[2016-11-21] MEDS ORDERED: Ondansetron ODT 4 MG TAB.RAPDIS SL PRN (10:05)
[2016-11-21] MEDS ORDERED: Dextrose Gel 15 GM PO PRN ×2 (10:05)
[2016-11-21] MEDS ORDERED: *HR* Dextrose 50 % in Water (Syg) 50 ML SYRINGE IVP PRN (10:05)
[2016-11-21] MEDS ORDERED: D5% in Water 1,000 ML IVC PRN (10:05)
--- NOTE | 2016-11-21 10:16 | Internal Med History&Physical ---
Date of Encounter: 11/21/16 Time of Encounter: 09:00 Assessment and Plan (1) Atypical chest pain Current visit: Yes Status: Acute Last Sunday, patient was gardening at his home when he developed sudden onset of precordial chest pain so he rested and all his symptoms resolved after a few minutes. Yesterday, patient went to see his doctor [facility] in [place] and only had lunch at noon when he was back at home he felt sick so he went to bed. This morning, he woke up at 6 AM because of diaphoresis, palpitations and precordial chest pain that radiated to his jaw. He got up from bed and walked to his bathroom but had to grab onto the dressers because of being confused and imbalance. He reported that he did not know who he was or where was he but after 2 minutes he was back to normal. He checks his sugars and it was 104. No syncope. No focal deficit. No speech problems. No shortness of breath. He has chronic headaches. No nausea. No vomiting. No abdominal pain. No lower extremity edema. Patient reports his blood pressure has been up in the 158/78. In our ED, CT head was negative, troponin 1 was negative. EKG reviewed by me shows sinus rhythm heart rate 76. No acute ischemic changes. Chest x-ray reviewed by me shows no acute process. Patient has no chest pain or palpitations at this time. His only symptom is his chronic neck pain and states that the bed is making it worse. Patient had a recent hospitalization in our observation unit on Oct 19 2016 because of chest pain with exertion. At that time, EKG was unremarkable, troponin were negative, chest x-ray was negative. He underwent regadenoson nuclear stress test that was negative for ischemia or infarct. Echocardiogram was technically suboptimal, it showed normal LV systolic function, LVEF 60%, cardiac valves were not well visualized. His symptoms of chest pain where deemed secondary to opiate withdrawal since he stopped taking his oxycodone for 2 weeks before presentation. Differential diagnoses include acute coronary syndrome versus transient ischemic attack versus anxiety. Serial troponins. secured entrance monitor. Check Doppler of carotids. Repeat echocardiogram to assess valves. (2) Transient confusion Current visit: Yes Status: Acute Plan as above. (3) TIA (transient ischemic attack) Current visit: Yes Status: Suspected Plan as above. Qualifiers: Transient cerebral ischemia type: other Qualified Code(s): G45.8 - Other transient cerebral ischemic attacks and related syndromes (4) ACS (acute coronary syndrome) Current visit: No Status: Suspected Plan as above. (5) Diabetes Current visit: No Status: Chronic Glucose 302 on admission. Sliding scale insulin. Diabetic diet. 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 Insulin sliding scale and diabetic diet. 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 Continue home dose of mesalamine. Internal Medicine - H&P: HPI Chief complaint: pre-cordial chest pain since Sunday Admitted From: Home Plans for Post Hospital Care: Home History of present illness: Mr. Zamora is a 65 year old male with past medical history of diabetes, hypertension, chronic pain syndrome due to cervical fracture and bilateral rotator cuff tear. Last Sunday, patient was gardening at his home when he developed sudden onset of precordial chest pain so he rested and all his symptoms resolved after a few minutes. Yesterday, patient went to see his doctor [facility] in [place] and only had lunch at noon when he was back at home he felt sick so he went to bed. This morning, he woke up at 6 AM because of diaphoresis, palpitations and precordial chest pain that radiated to his jaw. He got up from bed and walked to his bathroom but had to grab onto the dressers because of being confused and imbalance. He reported that he did not know who he was or where was he but after 2 minutes he was back to normal. He checks his sugars and it was 104. No syncope. No focal deficit. No speech problems. No shortness of breath. He has chronic headaches. No nausea. No vomiting. No abdominal pain. No lower extremity edema. Patient reports his blood pressure has been up in the 158/78. Patient has no chest pain or palpitations at this time. His only symptom is his chronic neck pain and states that the bed is making it worse. Patient had a recent hospitalization in our observation unit on Oct 19 2016 because of chest pain with exertion. At that time, EKG was unremarkable, troponin were negative, chest x-ray was negative. He underwent regadenoson nuclear stress test that was negative for ischemia or infarct. Echocardiogram was technically suboptimal, it showed normal LV systolic function, LVEF 60%, cardiac valves were not well visualized. His symptoms of chest pain where deemed secondary to opiate withdrawal since he stopped taking his oxycodone for 2 weeks before presentation. Past Med Surg Social Fam HX - Past Medical History Medical history: arthritis, diabetes, hyperlipidemia, hypertension, other Psychiatric history: PTSD - Past Surgical History Surgical History: other - Social History Smoking Status: Former smoker Smokeless Tobacco Status: No Alcohol use: rarely Drug use: none - Family History Father Living Status: Hx Family Cardiac Disorders: Yes (AK) Hx Family Cancer: Yes (leukemia) Mother Living Status: Hx Family Respiratory Disorders: Yes (COPD) Hx Family Endocrine Disorder: Yes (DM) Internal Medicine - H&P: Meds Albuterol Sulfate [Albuterol Inhaler] 2 puff IH Q6HR PRN 04/06/15 [History] Glimepiride [Amaryl] 4 mg PO BID 04/06/15 [History] Lisinopril 20 mg PO DAILY 04/06/15 [History] Simvastatin 40 mg PO DAILY 04/06/15 [History] Mesalamine [Apriso] 1.5 gm PO QAM 10/18/16 [History] Topiramate [Topamax] 50 mg PO BID 10/18/16 [History] Aspirin [Lo-Dose Aspirin EC] 81 mg PO DAILY 11/21/16 [History] Oxycodone HCl [Oxycontin] 20 mg PO Q6HR PRN 11/21/16 [History] Allergies No Known Allergies Allergy (Verified 11/21/16 09:53) All Systems PM: A 10-system review of systems was performed and is negative for pertinent findings except as documented above in the HPI. - Constitutional Constitutional: no chills, no excessive sweating, no fever(s), no lethargy, no malaise, no weakness, no weight loss - EENT Eyes: no blurry vision, no dry eye, no pain, no photophobia - Cardiovascular Cardiovascular ROS IM: as per HPI - Respiratory Respiratory: as per HPI - Gastrointestinal Gastrointestinal: no abdominal pain, no change in bowel habits, no change in stool character, no diarrhea, no loose stools, no melena, no nausea, no odynophagia - Neurological Neurological ROS: no abnormal gait, no disequilibrium, no dizziness, no frequent falls, no loss of vision - Hematologic/Lymphatic Hematologic/Lymphatic: no easy bleeding, no easy bruising - Allergic/Immunologic Allergic/Immunologic: no tongue swelling, no throat swelling, no itchy eyes - Constitutional Vitals: Temp Pulse Resp BP Pulse Ox 97.6 F 75 16 161/78 99 11/21/16 06:20 11/21/16 06:20 11/21/16 06:20 11/21/16 06:20 11/21/16 06:20 General appearance: Present: cooperative, A&O X 3, pleasant, no acute distress, answers questions appropriately - Eye Eye exam: Present: PERRL, sclera anicteric - Neck Neck exam general surgery: Present: supple, trachea midline. Absent: lymphadenopathy - Respiratory Respiratory exam: Present: CTAB - Cardiovascular Cardiovascular exam: Present: RRR - GI/Abdominal GI/Abdominal exam: Present: normal bowel sounds, soft. Absent: distended, tenderness - Extremities Exam Extremities exam: Absent: pedal edema - Back Exam Back exam: Absent: CVA tenderness (L), CVA tenderness (R) - Neurological Exam Neurological exam: Present: alert, oriented X3, no focal deficits. Absent: facial droop, speech deficit - Skin Skin exam: Absent: rash Internal Med - H&P Results - Labs CBC & Chem 7: 11/20/16 22:18 11/20/16 22:18
[2016-11-21] MEDS: Lisinopril 20 MG TABLET PO SCH (12:08)
[2016-11-21] MEDS: Topiramate 25 MG TABLET PO SCH ×2 (12:08→21:55)
[2016-11-21] MEDS: MESALAMINE 1.5 GM PO SCH (13:09)
[2016-11-21] MEDS: Insulin LISPRO 300 UNITS/3 ML VIAL SQ SCH ×2 (13:31→17:45)
[2016-11-21] MEDS ORDERED: Insulin LISPRO 300 UNITS/3 ML VIAL SQ SCH (21:00)
--- NOTE | 2016-11-22 00:03 | Electrocardiograph Report ---
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
[2016-11-22] MEDS ORDERED: ALPRAZolam 0.5 MG TABLET PO ONE (03:03)
[2016-11-22 05:28] LABS: Basophils # 0.1 K/mcL (0.0-0.2); Basophils % 0.8 %; Eosinophils # 0.2 K/mcL (0.0-0.6); Eosinophils % 3.7 %; Hematocrit 38.4 % (37.5-50.1); Hemoglobin 12.8 g/dL (12.9-16.9); Immature Granulocytes % 0.3 % (0-4); Lymphocytes # 2.2 K/mcL (0.6-4.6); Lymphocytes % 33.5 %; Mean Corpuscular HGB Conc 33.3 g/dL (31.6-35.5); Mean Corpuscular Volume 86.9 fL (83.0-100.0); Mean Platelet Volume 10.6 fL (9.4-12.4); Monocytes # 0.5 K/mcL (0.0-1.3); Neutrophils # 3.5 K/mcL (1.6-8.9); Platelet Count 189 K/mcL (140-400); Red Blood Count 4.42 M/mcL (4.19-5.50); Red Cell Distribution Width 13.8 % (11.5-14.5); Segmented Neutrophils % 54.7 %
[2016-11-22 05:45] LABS: BUN/Creatinine Ratio 19 (6-26); Blood Urea Nitrogen 14 mg/dL (8-26); Calcium 8.8 mg/dL (8.6-10.8); Carbon Dioxide 19 mEq/L (19-29); Chloride 112 mEq/L (98-109); Glucose 129 mg/dL (70-99); Magnesium 1.7 mg/dL (1.6-2.6); Osmolality,Calculated 288 (280-300); Phosphorous 3.2 mg/dL (2.3-4.7); Potassium 3.5 mEq/L (3.5-4.5); Sodium 138 mEq/L (136-145); eGFR For African Americans > 60 (> 60); eGFR For Non-African Americans > 60 (> 60)
[2016-11-22] MEDS: Lisinopril 20 MG TABLET PO SCH (07:40)
[2016-11-22] MEDS: Insulin LISPRO 300 UNITS/3 ML VIAL SQ SCH ×2 (08:35→12:38)
[2016-11-22] MEDS ORDERED: Aspirin Enteric Coated 81 MG Tablet PO SCH (09:00)
[2016-11-22] MEDS: MESALAMINE 1.5 GM PO SCH (09:32)
[2016-11-22] MEDS: Topiramate 25 MG TABLET PO SCH (09:36)
--- NOTE | 2016-11-22 11:27 | Electrocardiograph Report ---
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
--- NOTE | 2016-11-22 13:05 | Cardiology Consult Note ---
Date of Encounter: 11/22/16 Time of Encounter: 10:10 Assessment and Plan (1) Atypical chest pain Current Visit: Yes Status: Acute Patient's cardiac workup thus far is negative with no signs ischemia on EKG, negative troponins 0.003, patient currently is asymptomatic. Echocardiogram taken 1 day ago as LVEF of 55% normal left ventricular size and systolic function. Patient had previous stress tests performed that was negative for ischemia or infarct and an medicated EF of 58%. Patient believes that his symptoms are more related to anxiety at this time and not cardiac related. After discussing results of patient's workup with the patient we will leave this to be less likely cardiac related at this time but recommended close follow-up in the [facility] that patient develops symptoms are cardiac related since we cannot fully rule out cardiac etiology at this time. No further recommendations from cardiology at this time but consult us if needed Discussion w patient/family: The assessment and plan as outlined above was discussed with the patient and/or family members who expressed understanding and agreement. All questions were answered. Thank you for involving us in the care of your patient. Please call with any questions. History of Present Illness Consult date: 11/22/16 Requesting physician: Calli Johnson Consult reason: Atypical Chest Pain Chief complaint: Chest pain and confusion History of present illness: Mr. Zamora is a 65 year old male with past medical history of occasionally, HTN, DM, chronic back pain currently being weaned off oxycodone who presents with atypical chest pain midsternal is constant and nonradiating and apparent after waking up at 0600 hrs. one day ago. Patient states that he woke up diaphoretic as well. Patient states he was very confused and disoriented and felt terrified. Patient states that he did not really noticed chest wall pain until the paramedics showed up and remember describing the tenderness is reproducible with palpation to his chest wall. Patient states that he was seen a month ago and thought he was having a heart attack after trying to quit his prescription opiod medications but after negative cardiac workup and stress test he states he was given an oxycodone which ceased his symptoms. Patient states that overnight he continued to have periods of chest pain after suffering feelings of anxiousness. He states that once he described himself with activity that his symptoms resolved. Past Med Surg Social Fam HX - Past Medical History Attestation: Yes The following information was validated with the patient. Source: patient Medical history: arthritis, diabetes, hyperlipidemia, hypertension, other Psychiatric history: PTSD - Past Surgical History Surgical History: other - Social History Smoking Status: Former smoker Smokeless Tobacco Status: No Alcohol use: rarely Drug use: none - Family History Father Living Status: Hx Family Cardiac Disorders: Yes (CA) Hx Family Cancer: Yes (leukemia) Mother Living Status: Hx Family Respiratory Disorders: Yes (COPD) Hx Family Endocrine Disorder: Yes (DM) Medications and Allergies Albuterol Sulfate [Albuterol Inhaler] 2 puff IH Q6HR PRN 04/06/15 [History] Glimepiride [Amaryl] 4 mg PO BID 04/06/15 [History] Lisinopril 20 mg PO DAILY 04/06/15 [History] Simvastatin 40 mg PO DAILY 04/06/15 [History] Mesalamine [Apriso] 1.5 gm PO QAM 10/18/16 [History] Topiramate [Topamax] 50 mg PO BID 10/18/16 [History] Aspirin [Lo-Dose Aspirin EC] 81 mg PO DAILY 11/21/16 [History] Oxycodone HCl [Oxycontin] 20 mg PO Q6HR PRN 11/21/16 [History] Allergies No Known Allergies Allergy (Verified 11/21/16 09:53) All Systems Review: A 10-system review of systems was performed and is negative for pertinent findings except as documented above in the HPI. - Constitutional Constitutional: fatigue, no anorexia, no chills, no fever(s), no frequent falls , no headache(s), no lethargy, no malaise, no night sweats, no weakness - EENT Eyes: no blurred vision, no loss of vision Nose, mouth and throat: no dysphagia, no epistaxis - Cardiovascular Cardiovascular: chest pain at rest, diaphoresis, no chest pain with exertion, no claudication, no dyspnea at rest, no dyspnea on exertion, no radiating jaw, neck or arm pain, no leg edema, no palpitations, no syncope - Respiratory Respiratory: no cough, no dyspnea, no hemoptysis, no wheezing - Gastrointestinal Gastrointestinal: no abdominal pain, no coffee ground emesis, no constipation, no diarrhea, no dysphagia, no hematemesis, no hematochezia, no melena, no nausea - Genitourinary Genitourinary: no dysuria, no hematuria - Musculoskeletal Musculoskeletal: back pain, no muscle weakness, no myalgias - Integumentary Integumentary: no erythema, no rash, no unusual bruising - Neurological Neurological: no abnormal speech, no dizziness, no focal weakness, no loss of vision, no memory loss, no numbness, no tingling - Psychiatric Psychiatric: anxiety, panic attacks Physical Examination Vital Signs, Last 4 Hours Temp Pulse Resp BP Pulse Ox 11/22/16 10:42 98.0 F 72 17 130/73 96 11/22/16 09:30 96 General: Conversant, No Apparent Distress HEENT: Atraumatic, Normocephaly, Mucus Membranes Moist Neck: No JVD, Normal carotid pulses Cardiac: Reg Rate and Rhythm, Normal S1 and S2, No Murmur Lungs: Normal Breath Sounds, No Wheeze, Rales, Rhonchi Neuro: Alert and responsive, No focal deficits noted Abdomen: Soft, Non-Tender Skin: No rashes noted on visualized skin Musculoskeletal: No Chest Wall Tenderness Extremities: No Clubbing, No Cyanosis, No Edema, Normal Pulses Results 11/22/16 05:13 11/22/16 05:13 Lab Results 11/21/16 11/22/16 11/22/16 20:48 05:13 05:13 WBC 6.4 Hgb 12.8 L Hct 38.4 Plt Count 189 Sodium 138 Potassium 3.5 Chloride 112 H Carbon Dioxide 19 BUN 14 Creatinine 0.73 Glucose 129 H Calcium 8.8 Magnesium 1.7 Troponin I 0.00 - EKG Interpretation EKG results cardiology: personally reviewed, normal ECG, sinus rhythm Consult Discharge Plan - Plan Referrals: NO,PCP [Primary Care Provider] -
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
[2016-11-22 15:24] VITALS: BP 128/76
--- NOTE | 2016-11-22 18:41 | Carotid Imaging Report ---
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 Recommendations: After imaging the patient returned to their room. Findings Carotid Duplex: Right: The right proximal common carotid artery has a PSV of 99 cm/s and a EDV of 24 cm/s. The right mid common carotid artery has a PSV of 93 cm/s and a EDV of 20 cm/s. The right distal common carotid artery has a PSV of 88 cm/s and a EDV of 21 cm/s. There is nonstenotic plaque in the right bifurcation with a PSV of 94 cm/s and a EDV of 22 cm/s. There is nonstenotic plaque in the right proximal internal carotid artery with a PSV of 95 cm/s and a EDV of 28 cm/s. The right mid internal carotid artery has a PSV of 99 cm/s and a EDV of 30 cm/s. The right distal internal carotid artery has a PSV of 98 cm/s and a EDV of 27 cm/s. The right eca has a PSV of 157 cm/s and a EDV of 21 cm/s. The right vertebral artery has a PSV of 28 cm/s and a EDV of 9 cm/s. Left: The left proximal common carotid artery has a PSV of 121 cm/s and a EDV of 26 cm/s. The left mid common carotid artery has a PSV of 105 cm/s and a EDV of 21 cm/s. The left distal common carotid artery has a PSV of 100 cm/s and a EDV of 24 cm/s. There is nonstenotic plaque in the left bifurcation with a PSV of 113 cm/s and a EDV of 31 cm/s. There is nonstenotic plaque in the left proximal internal carotid artery with a PSV of 118 cm/s and a EDV of 30 cm/s. There is nonstenotic plaque in the left mid internal carotid artery with a PSV of 121 cm/s and a EDV of 35 cm/s. The left distal internal carotid artery has a PSV of 106 cm/s and a EDV of 28 cm/s. There is nonstenotic plaque in the left eca with a PSV of 216 cm/s and a EDV of 28 cm/s. The left vertebral artery has a PSV of 42 cm/s and a EDV of 12 cm/s. Prior Study: No prior study available for comparison. Carotid Results Right PSV EDV Assessment Proximal CCA 99 24 Normal Mid CCA 93 20 Normal Distal CCA 88 21 Normal Bifurcation 94 22 Non Stenotic Plaque Proximal ICA 95 28 Non Stenotic Plaque Mid ICA 99 30 Normal Distal ICA 98 27 Normal ECA 157 21 Normal Vertebral Artery 28 9 Normal Left PSV EDV Assessment Proximal CCA 121 26 Normal Mid CCA 105 21 Normal Distal CCA 100 24 Normal Bifurcation 113 31 Non Stenotic Plaque Proximal ICA 118 30 Non Stenotic Plaque Mid ICA 121 35 Non Stenotic Plaque Distal ICA 106 28 Normal ECA 216 28 Non Stenotic Plaque Vertebral Artery 42 12 Normal Ratio's Right ICA/CCA Ratio: 1.06 ICA/CCA Values: 99/93 Left ICA/CCA Ratio: 1.15 ICA/CCA Values: 121/105 Updated by Lenny Carranza MD on 11/22/2016 6:34:58 PM electronically signed on 11/22/2016 6:35:17 PM with status of Final
== END 2016-11-22 16:45 | disposition home or self-care (01) ==
LOC: EMEROO 21:42 → 3BNU 21:42
PROVIDERS: ADMIT Internal Medicine; ATTEND Nurse Practitioner Family

== ENCOUNTER 2018-01-14 11:54 | Observation (INO) ==
[2018-01-14 12:38] LABS: Basophils % 0.6 %; Eosinophils # 0.1 K/mcL (0.0-0.6); Eosinophils % 2.2 %; Hematocrit 45.5 % (37.5-50.1); Hemoglobin 15.2 g/dL (12.9-16.9); Immature Granulocytes % 0.3 % (0-4); Lymphocytes # 1.1 K/mcL (0.6-4.6); Lymphocytes % 17.4 %; Mean Corpuscular HGB Conc 33.4 g/dL (31.6-35.5); Mean Corpuscular Hemoglobin 29.1 pg (28.0-33.3); Mean Corpuscular Volume 87.2 fL (83.0-100.0); Mean Platelet Volume 10.2 fL (9.4-12.4); Monocytes # 0.5 K/mcL (0.0-1.3); Monocytes % 8.1 %; Neutrophils # 4.6 K/mcL (1.6-8.9); Platelet Count 201 K/mcL (140-400); Red Blood Count 5.22 M/mcL (4.19-5.50); Red Cell Distribution Width 14.5 % (11.5-14.5); Segmented Neutrophils % 71.4 %
[2018-01-14 13:17] LABS: INR 1.1; Prothrombin Time 11.9 Seconds (9.4-12.1)
--- NOTE | 2018-01-14 13:17 | Emergency Department Note ---
Disposition Clinical Impression: Chest pain Qualifiers: Chest pain type: unspecified Qualified Code(s): R07.9 - Chest pain, unspecified Disposition: Admitted As Inpatient Condition: Fair Referrals: Avelina Olivares DO [Primary Care Provider] - Time of Disposition: 14:26 Chest Pain HPI - General Chief Complaint: ED Chest Pain Stated Complaint: CP X2days Time Seen by Provider: 01/14/18 12:09 Source: patient Limitations: no limitations Vital Signs Reviewed: Yes Nursing Notes Reviewed: Yes - History of Present Illness HPI Narrative: Patient is a 67-year-old male who presents to [facility] ED with a chief complaint of chest pain. States his symptoms started 2 days ago when he was walking around at the [facility]. States it came on as a pressure in the middle of his chest. Denies any nausea, vomiting, fever or chills. Does feel some shortness of breath with this. Denies any prior cardiac history. His last stress test was approximately 15 years ago. Past medical history significant for type 2 diabetes and hypertension. Pt complaint: chest pain Onset (ago): day(s) (2) Duration: constant Pain Location: substernal Severity: mild Severity scale (1-10): 2 Quality: aching, heaviness Pain Radiation: none Improves with: nothing Worsens with: nothing Associated symptoms: Reports: dyspnea. Denies: nausea, vomiting, diaphoresis, fever Treatments prior to arrival chest pain: none - Related Data Home Medications Medication Instructions Recorded Confirmed Lisinopril 20 mg PO DAILY 04/06/15 01/14/18 Topiramate [Topamax] 50 mg PO BID 10/18/16 01/14/18 Atorvastatin [Lipitor] 40 mg PO HS 01/14/18 01/14/18 Dapagliflozin Propanediol [Farxiga] 10 mg PO DAILY 01/14/18 01/14/18 Dulaglutide [Trulicity] 1.5 mg SQ QWEEK 01/14/18 01/14/18 Mesalamine [Apriso] 1.5 gm PO QAM 01/14/18 01/14/18 Oxycodone HCl/Acetaminophen 1 tab PO Q6H PRN 01/14/18 01/14/18 [Percocet 10-325 mg Tablet] Allergies Allergy/AdvReac Type Severity Reaction Status Date / Time No Known Allergies Allergy Verified 01/14/18 12:01 All systems ED: reviewed and negative except as stated. Chest Pain PMH - Past Medical History Medical history: Reports: arthritis, diabetes, hyperlipidemia, hypertension, other Surgical history: Reports: orthopedic, other, other Psychiatric history: Reports: PTSD - Social History Smoking Status: Former smoker Alcohol use: Reports: rarely Drug use: Reports: none Physical Exam - General Limitations: no limitations General appearance: alert, in no apparent distress - Head Head exam: atraumatic, normocephalic, normal inspection - Eye Eye exam: Present: normal appearance, EOMI - ENT ENT exam: normal exam, normal oropharynx, mucous membranes moist - Neck Neck exam: Present: normal inspection, full ROM, trachea midline - Chest Chest inspection: Present: normal inspection, symmetric chest wall rise - Respiratory Respiratory exam: Present: normal lung sounds bilaterally - Cardiovascular Cardiovascular exam: Present: regular rate, normal rhythm, normal heart sounds - Abdominal Exam Abdominal exam: Present: soft, Non-Tender. Absent: tenderness, distention, guarding, rebound, rigidity - Extremities Exam Extremities exam: Present: normal inspection, full ROM. Absent: tenderness, pedal edema - Neurological Exam Neurological exam: Present: alert, oriented X3 - Psychiatric Psychiatric exam: Present: normal affect, normal mood - Skin Skin exam: Present: warm, dry, intact, normal color Course Course Narrative: Patient seen and examined. Chest pain for the last 2 days. Worse with exertion. Patient took aspirin prior to arrival. nitroglycerin ordered. Cardiopulmonary workup initiated. Patient's chest pain currently 2 out of 10. - Reevaluation(s) Reevaluation #1: Labwork, imaging unremarkable. We will admit for chest pain rule out ACS. I discussed with hospitalist Dr. Velazquez who has accepted patient for admission. Time: 14:25 Vital Signs Temperature 98.3 F 01/14/18 12:01 Pulse Rate 71 01/14/18 12:01 Respiratory Rate 20 01/14/18 12:01 Blood Pressure 115/77 01/14/18 12:01 O2 Sat by Pulse Oximetry 96 01/14/18 12:01 Temperature 97.9 F 01/14/18 15:26 Pulse Rate 73 01/14/18 15:26 Respiratory Rate 17 01/14/18 15:26 Blood Pressure 129/73 01/14/18 15:26 O2 Sat by Pulse Oximetry 97 01/14/18 15:26 Oxygen Delivery Oxygen Delivery Room Air Chest Pain - Medical Records Medical records reviewed: Yes I reviewed the patient's medical records. - Lab Data Lab results reviewed: Yes I reviewed the patient's lab results. Result diagrams: 01/14/18 12:26 01/14/18 12:26 Lab Results 01/14/18 01/14/18 01/14/18 Range/Units 12:26 12:26 12:26 WBC 6.4 (4.3-11.1) K/mcL RBC 5.22 (4.19-5.50) M/mcL Hgb 15.2 (12.9-16.9) g/dL Hct 45.5 (37.5-50.1) % MCV 87.2 (83.0-100.0) fL MCH 29.1 (28.0-33.3) pg MCHC 33.4 (31.6-35.5) g/dL RDW 14.5 (11.5-14.5) % Plt Count 201 (140-400) K/mcL MPV 10.2 (9.4-12.4) fL Immature Gran % 0.3 (0-4) % Seg Neutrophils % 71.4 % Lymphocytes % 17.4 % Monocytes % 8.1 % Eosinophils % 2.2 % Basophils % 0.6 % Neutrophils # 4.6 (1.6-8.9) K/mcL Lymphocytes # 1.1 (0.6-4.6) K/mcL Monocytes # 0.5 (0.0-1.3) K/mcL Eosinophils # 0.1 (0.0-0.6) K/mcL Basophils # 0.0 (0.0-0.2) K/mcL PT (9.4-12.1) Seconds INR APTT (26.0-36.0) Seconds Sodium 138 (136-145) mEq/L Potassium 3.8 (3.5-5.1) mEq/L Chloride 110 H (98-107) mEq/L Carbon Dioxide 20 L (23-29) mEq/L BUN 17 (8-23) mg/dL Creatinine 0.61 L (0.70-1.30) mg/dL Est GFR ( Amer) > 60 (> 60) Est GFR (Non-Af Amer) > 60 (> 60) BUN/Creatinine Ratio 28 H (6-26) Glucose 143 H (70-105) mg/dL Calculated Osmolality 290 (280-300) Calcium 9.3 (8.6-10.3) mg/dL Troponin I < 0.03 (< 0.04) ng/mL Specimen Rejected Volume 01/14/18 Range/Units 12:53 WBC (4.3-11.1) K/mcL RBC (4.19-5.50) M/mcL Hgb (12.9-16.9) g/dL Hct (37.5-50.1) % MCV (83.0-100.0) fL MCH (28.0-33.3) pg MCHC (31.6-35.5) g/dL RDW (11.5-14.5) % Plt Count (140-400) K/mcL MPV (9.4-12.4) fL Immature Gran % (0-4) % Seg Neutrophils % % Lymphocytes % % Monocytes % % Eosinophils % % Basophils % % Neutrophils # (1.6-8.9) K/mcL Lymphocytes # (0.6-4.6) K/mcL Monocytes # (0.0-1.3) K/mcL Eosinophils # (0.0-0.6) K/mcL Basophils # (0.0-0.2) K/mcL PT 11.9 (9.4-12.1) Seconds INR 1.1 APTT 32.0 (26.0-36.0) Seconds Sodium (136-145) mEq/L Potassium (3.5-5.1) mEq/L Chloride (98-107) mEq/L Carbon Dioxide (23-29) mEq/L BUN (8-23) mg/dL Creatinine (0.70-1.30) mg/dL Est GFR ( Amer) (> 60) Est GFR (Non-Af Amer) (> 60) BUN/Creatinine Ratio (6-26) Glucose (70-105) mg/dL Calculated Osmolality (280-300) Calcium (8.6-10.3) mg/dL Troponin I (< 0.04) ng/mL Specimen Rejected - Radiology Data Radiology results reviewed: Yes I reviewed the patient's radiology results. Chest X-Ray 01/14/18 12:25 IMPRESSION: No evidence of acute cardiopulmonary disease. No significant interval change. D/ / 01/14/2018 12:39:25 Dexter Julien MD / Genna Keys Interpreting Provider: Dexter Julien MD - EKG Data EKG attestation: Yes I reviewed and interpreted this EKG. EKG results narrative: EKG done at 1159 shows normal sinus rhythm with a rate of [address] elevation or depression. Normal axis. Low voltage throughout. Unchanged from prior EKG done 11/22/2016. Heart Score - Score History: Moderately Suspicious EKG: Normal Age: 45-65 Risk Factors: Equal/Greater than 3 risk factor or history of atherosclerotic disease Troponin: Less than normal limit HEART Score Total: 4 Attestation Statement - Attestation Attestation: I, Giovani Scanlon, examined this patient and my medical decision-making was reviewed with the DEBURR OPERATOR/PA/Advanced Practice Nurse/Resident Physician. I agree with the documented findings, disposition and treatment plan as described except to the extent set forth below. 67-year-old male presents emergency Department with concerns of acute onset chest pain with exertion. Patient [facility] when he had acute onset of his pain. Patient has multiple risk factors for cardiac disease. Initial troponin was negative. EKG did not show evidence of acute STEMI. Because of his high risk, he will be admitted to the hospitalist for further care and evaluation of his chest pain to rule out ACS.
[2018-01-14 13:19] LABS: BUN/Creatinine Ratio 28 (6-26); Blood Urea Nitrogen 17 mg/dL (8-23); Calcium 9.3 mg/dL (8.6-10.3); Carbon Dioxide 20 mEq/L (23-29); Chloride 110 mEq/L (98-107); Glucose 143 mg/dL (70-105); Osmolality,Calculated 290 (280-300); Potassium 3.8 mEq/L (3.5-5.1); Sodium 138 mEq/L (136-145); eGFR For Non-African Americans > 60 (> 60)
[2018-01-14] MEDS ORDERED: Aspirin 81 MG TAB.CHEW PO ONE (13:29)
[2018-01-14] MEDS: Nitroglycerin 0.4 MG TAB.SUBL SL PRN ×2 (13:41→13:45)
[2018-01-14 13:53] LABS: Troponin I < 0.03 ng/mL (< 0.04)
--- NOTE | 2018-01-14 18:26 | Internal Med History&Physical ---
Date of Encounter: 01/14/18 Time of Encounter: 15:10 Internal Medicine - H&P: HPI Chief complaint: chest pain Admitted From: Home Plans for Post Hospital Care: Home History of present illness: Mr. Zamora is a 67 year old male with past medical history of HLD, HTN, Diabetes, morbid obesity, anemia, hx HI who presented with chest pain. Pt states chest pain developed while he was at the [facility] fair. States pain was pressure like in nature and was mid sternal. Denies radiation of pain. Pain scale 2-3/10. Pain was relived in Ed after he was given Nitro SL. Pt also reports that he checked his BP at home after the fair. He states he has BP monitor that is connected to his cell phone. States BP documented an irregular rhythm. Pt states he came in to ED on Sunday and requested cardiology referral. When he called cardiology's office they informed him that he needed to come into the hospital to be admitted for further workup. Pt denies previous hx of HI. CODE STATUS: FULL In ED Initial troponin was negative and EKG normal SR. Chest x ray XR/XR chest 1V portable IMPRESSION: No evidence of acute cardiopulmonary disease. No significant interval change. Past Med Surg Social Fam HX - Past Medical History Medical history: arthritis, diabetes, hyperlipidemia, hypertension, other Additional medical history: colitis Psychiatric history: PTSD - Past Surgical History Surgical History: orthopedic, other, other Additional surgical history: neck infusion, left shoulder, - Social History Smoking Status: Former smoker Smokeless Tobacco Status: No Alcohol use: rarely Drug use: none - Family History Father Living Status: Hx Family Cardiac Disorders: Yes (HI) Hx Family Cancer: Yes (leukemia) Mother Living Status: Hx Family Respiratory Disorders: Yes (COPD) Hx Family Endocrine Disorder: Yes (DM) Internal Medicine - H&P: Meds Lisinopril 20 mg PO DAILY 04/06/15 [History] Topiramate [Topamax] 50 mg PO BID 10/18/16 [History] Atorvastatin [Lipitor] 40 mg PO HS 01/14/18 [History] Dapagliflozin Propanediol [Farxiga] 10 mg PO DAILY 01/14/18 [History] Dulaglutide [Trulicity] 1.5 mg SQ QWEEK 01/14/18 [History] Mesalamine [Apriso] 1.5 gm PO QAM 01/14/18 [History] Oxycodone HCl/Acetaminophen [Percocet 10-325 mg Tablet] 1 tab PO Q6H PRN [History] 3 Allergy/AdvReac Type Severity Reaction Status Date / Time No Known Allergies Allergy Verified 01/14/18 12:01 All Systems PM: A 10-system review of systems was performed and is negative for pertinent findings except as documented above in the HPI. - Constitutional Vitals: Temp Pulse Resp BP Pulse Ox 97.9 F 73 17 129/73 97 01/14/18 15:26 01/14/18 15:26 01/14/18 15:26 01/14/18 15:26 01/14/18 15:26 General appearance: Present: A&O X 3 - Head Head exam: Present: atraumatic, normocephalic - Eye Eye exam: Present: PERRL, conjuntiva pink, sclera anicteric Pupils: Present: PERRL - Neck Neck exam general surgery: Present: supple, trachea midline. Absent: lymphadenopathy - Respiratory Respiratory exam: Present: CTAB. Absent: accessory muscle use, rales, rhonchi, wheezes - Cardiovascular Cardiovascular exam: Present: RRR, +S1, +S2. Absent: diastolic murmur, gallop, rubs, systolic murmur - GI/Abdominal GI/Abdominal exam: Present: normal bowel sounds, soft, no peritoneal signs. Absent: distended, tenderness - Extremities Exam Extremities exam: Present: warm, radial pulses palpable and symmetrical. Absent : calf tenderness, cyanotic, pedal edema - Neurological Exam Neurological exam: Present: CN II-XII intact, oriented X3, no focal deficits. Absent: pronater drift, facial droop, speech deficit - Skin Skin exam: Present: dry, intact Internal Med - H&P Results - Labs CBC & Chem 7: 01/14/18 12:26 01/14/18 12:26 - Assessment and plan (1) Chest pain Current Visit: Yes Status: Acute Assessment and plan: Will cycle troponin. ASA daily and Nitro SL prn. Qualifiers: Chest pain type: unspecified Qualified Code(s): R07.9 - Chest pain, unspecified (2) Hypertension Current Visit: No Status: Chronic Assessment and plan: Will resume Lisinopril Qualifiers: (3) Hyperlipidemia Current Visit: No Status: Chronic Assessment and plan: On Lipitor Qualifiers: Hyperlipidemia type: unspecified Qualified Code(s): E78.5 - Hyperlipidemia , unspecified - Time Spent With Patient Total time spent is greater than 50% in coordination of care (as documented) at patient's floor/unit and/or counseling patient: 25 - 35 minutes
[2018-01-14] MEDS ORDERED: Nitroglycerin 0.4 MG TAB.SUBL SL PRN (18:31)
[2018-01-14] MEDS ORDERED: *HR* OxyCODONE/APAP 10/325 TABLET PO PRN (18:36)
[2018-01-14] MEDS ORDERED: (Dulaglutide [Trulicity] 1.5 MG) SQ SCH (18:45)
[2018-01-14] MEDS: Topiramate 25 MG TABLET PO SCH (21:25)
--- NOTE | 2018-01-14 22:05 | Electrocardiograph Report ---
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
[2018-01-15 01:30] LABS: Basophils % 0.5 %; Eosinophils # 0.2 K/mcL (0.0-0.6); Hematocrit 43.3 % (37.5-50.1); Hemoglobin 14.5 g/dL (12.9-16.9); Immature Granulocytes % 0.4 % (0-4); Lymphocytes # 1.8 K/mcL (0.6-4.6); Mean Corpuscular HGB Conc 33.5 g/dL (31.6-35.5); Mean Corpuscular Hemoglobin 29.2 pg (28.0-33.3); Mean Corpuscular Volume 87.1 fL (83.0-100.0); Mean Platelet Volume 10.3 fL (9.4-12.4); Monocytes # 0.6 K/mcL (0.0-1.3); Monocytes % 7.7 %; Neutrophils # 4.6 K/mcL (1.6-8.9); Platelet Count 193 K/mcL (140-400); Red Blood Count 4.97 M/mcL (4.19-5.50); Red Cell Distribution Width 14.6 % (11.5-14.5); Segmented Neutrophils % 63.4 %
[2018-01-15 01:36] LABS: INR 1.1; Prothrombin Time 12.2 Seconds (9.4-12.1)
[2018-01-15 01:46] LABS: Alanine Aminotransferase 16 Units/L (7-52); Albumin 3.8 g/dL (3.5-5.7); Albumin/Globulin Ratio 1.5 (1.1-2.2); Alkaline Phosphatase 69 Units/L (34-104); Aspartate Amino Transferase 14 Units/L (13-39); BUN/Creatinine Ratio 26 (6-26); Bilirubin,Total 0.7 mg/dL (0.3-1.0); Blood Urea Nitrogen 17 mg/dL (8-23); Calcium 9.2 mg/dL (8.6-10.3); Carbon Dioxide 20 mEq/L (23-29); Chloride 109 mEq/L (98-107); Globulin 2.5 g/dL (2.4-3.5); Glucose 125 mg/dL (70-105); Magnesium 1.8 mg/dL (1.6-2.6); Osmolality,Calculated 289 (280-300); Potassium 3.4 mEq/L (3.5-5.1); Sodium 138 mEq/L (136-145); Total Protein 6.3 g/dL (6.4-8.9); eGFR For Non-African Americans > 60 (> 60)
[2018-01-15] MEDS ORDERED: Regadenoson 0.4 MG/5 ML SYRINGE IVP ONE (07:07)
[2018-01-15] MEDS ORDERED: Aspirin 81 MG TAB.CHEW PO SCH (09:00)
[2018-01-15] MEDS ORDERED: (Dapagliflozin Propanediol [Farxiga] 10 MG) PO SCH (09:00)
[2018-01-15] MEDS ORDERED: Lisinopril 20 MG TABLET PO SCH (09:00)
[2018-01-15] MEDS ORDERED: MESALAMINE 1.5 GM PO SCH (09:00)
[2018-01-15] MEDS: Topiramate 25 MG TABLET PO SCH (09:16)
[2018-01-15 10:57] VITALS: BP 112/56
--- NOTE | 2018-01-15 11:22 | Discharge Summary ---
- NOTES TO OUTPATIENT PROVIDER Notes to Outpatient Provider: 01/15- Stress test negative, pt has PACs noted throughout. Prior event monitor 30 years ago with unknown results, could possibly benefit from Holter after discharge. Date of Encounter: 01/15/18 Time of Encounter: 10:40 - Discharge Diagnosis (1) Chest pain Priority: Primary Status: Acute Assessment and Plan: Patient reports chest pain while at a fair. He states that it was substernal and described as a pressure. He reports associated shortness of breath, chest heaviness, dizziness, seeing black spots. He also reports intermittent episodes of palpitations and pressure in his neck with the palpitations. Pain was removed when he arrived at the emergency department was given nitroglycerin sublingual. Today patient reports that he feels the chest pain was related to taking 2 of his prescribed narcotic pain medications, and within 3 hours he took one more. Patient reports prior history of A. fib 30 years ago, he reported event monitor at that time, he denies any knowledge of results. He is pain-free currently. In review of his bedside monitor, it is mostly artifact in normal sinus rhythm without any noted dysrhythmias. Patient limited echocardiogram in November, showed LVEF of 55% with normal LV size and systolic function. Chest x-ray has been negative, troponins negative. Stress test was negative for ischemia or infarct with apical perfusion artifact. PACs were noted frequently throughout the testing and he had 1/10 chest pain. Gaited EF of 55%. Patient has history of hypertension, diabetes, hyperlipidemia, obesity and significant risk factors for cardiac disease. Recommend follow-up with primary care as scheduled in 3 days. Patient could benefit from Holter monitor after discharge. Qualifiers: Chest pain type: unspecified Qualified Code(s): R07.9 - Chest pain, unspecified (2) Diabetes Priority: Secondary Status: Chronic Assessment and Plan: Uncontrolled, A1c in August, 8.3%. Continue home medications and accucheck regimen. Pt states that he always "eats healthy", encourage ADA diet. 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 Continue home dose of Lipitor. Qualifiers: Hyperlipidemia type: unspecified Qualified Code(s): E78.5 - Hyperlipidemia , unspecified (5) Hypertension Priority: Secondary Status: Chronic Assessment and Plan: Well controlled in hospital setting. Continue home medications. Qualifiers: Hypertension type: essential hypertension Qualified Code(s): I10 - Essential (primary) hypertension (6) Obesity (BMI 30.0-34.9) Priority: Secondary Status: Chronic Assessment and Plan: Chronic. Continue lifestyle modifications . Hospital course: Mr. Zamora is a 67 year old male with past medical history of hyperlipidemia hypertension, diabetes, anemia, chronic opioid use, ACS, GI bleed, diverticulitis, colitis, anxiety. Patient in for chest pain, stress test was negative, prior echocardiogram from November, showed an LVEF of 55% which is congruent with LVEF on today's stress test, normal LV size and systolic function , Chest xray is negative for acute process, and troponins were negative. Patient is pain-free. He reported intermittent palpitations and frequent PACs were noted on stress test. Monitor reviewed, NSR noted without dysrhythmias, mostly artifact. Labs and vitals are stable and WNL. Pt is appropriate and stable for discharge. Discharge discussed with: patient - Time Spent with Patient Total time spent providing and/or coordinating discharge services: - Discharge Medications Home Medications: Lisinopril 20 mg PO DAILY 04/06/15 [History] Topiramate [Topamax] 50 mg PO BID 10/18/16 [History] Atorvastatin [Lipitor] 40 mg PO HS 01/14/18 [History] Dapagliflozin Propanediol [Farxiga] 10 mg PO DAILY 01/14/18 [History] Dulaglutide [Trulicity] 1.5 mg SQ QWEEK 01/14/18 [History] Mesalamine [Apriso] 1.5 gm PO QAM 01/14/18 [History] Oxycodone HCl/Acetaminophen [Percocet 10-325 mg Tablet] 1 tab PO Q6H PRN [History] Aspirin 81 mg PO DAILY tab.chew 01/15/18 [Rx] Allergies/Adverse Reactions: 3 Allergy/AdvReac Type Severity Reaction Status Date / Time No Known Allergies Allergy Verified 01/14/18 12:01 Date of admission: 01/14/18 14:22 Primary care physician: Avelina Olivares DO Discharging clinician: Calli Johnson Anticipated date of discharge: 01/15/18 - Constitutional Vitals: Temp Pulse Resp BP Pulse Ox 98.1 F 63 16 112/56 93 01/15/18 10:54 01/15/18 10:54 01/15/18 10:54 01/15/18 10:54 01/15/18 10:54 General appearance: Present: cooperative, A&O X 3, pleasant, no acute distress, obese, answers questions appropriately - Head Head exam: Present: atraumatic, normal inspection, normocephalic - Eye Eye exam: Present: EOMI, normal appearance, conjuntiva pink, sclera anicteric. Absent: nystagmus - Neck Neck exam general surgery: Present: supple, trachea midline. Absent: lymphadenopathy, tenderness - Respiratory Respiratory exam: Present: CTAB. Absent: accessory muscle use, chest wall tenderness, rales, respiratory distress, rhonchi, wheezes - Cardiovascular Cardiovascular exam: Present: RRR, +S1, +S2. Absent: diastolic murmur, gallop, rubs, systolic murmur - GI/Abdominal GI/Abdominal exam: Present: normal bowel sounds, soft, no peritoneal signs. Absent: distended, hepatomegaly - Extremities Exam Extremities exam: Present: normal capillary refill, normal inspection, warm, radial pulses palpable and symmetrical. Absent: calf tenderness, cyanotic, pedal edema, tenderness - Neurological Exam Neurological exam: Present: alert, oriented X3, no focal deficits. Absent: facial droop, speech deficit - Skin Skin exam: Present: dry, intact, normal color, warm. Absent: rash - Patient Status Disposition: Home, Self-Care Condition: Good Overall status at discharge: patient is back to baseline - Discharge Instructions Follow Up With: Avelina Olivares DO [Primary Care Provider] - Additional Instructions: Please follow up with your PCP as scheduled on Sunday. Please take your medications as directed Resume your normal diet and activities as tolerated. Return to the ER as needed for any other problems or concerns, or if your symptoms return or worsen. - Diet and Activity Activity: increase activity as tolerated Diet: diabetic diet, low fat, low cholesterol
== END 2018-01-15 13:27 | disposition home or self-care (01) ==
LOC: EMEROO 11:54 → 3BNU 11:54
PROVIDERS: ADMIT Internal Medicine; ATTEND Internal Medicine

== ENCOUNTER 2019-05-09 12:52 | Observation (INO) ==
[2019-05-09 13:44] LABS: Basophils % 0.6 %; Eosinophils # 0.1 K/mcL (0.0-0.6); Eosinophils % 1.4 %; Hematocrit 44.5 % (37.5-50.1); Hemoglobin 14.7 g/dL (12.9-16.9); Immature Granulocytes % 0.3 % (0-4); Lymphocytes # 1.2 K/mcL (0.6-4.6); Lymphocytes % 16.5 %; Mean Corpuscular Hemoglobin 29.4 pg (28.0-33.3); Mean Platelet Volume 10.2 fL (9.4-12.4); Monocytes # 0.5 K/mcL (0.0-1.3); Monocytes % 6.6 %; Neutrophils # 5.3 K/mcL (1.6-8.9); Platelet Count 195 K/mcL (140-400); Red Cell Distribution Width 14.3 % (11.5-14.5); Segmented Neutrophils % 74.6 %; White Blood Count 7.1 K/mcL (4.3-11.1)
[2019-05-09 14:04] LABS: BUN/Creatinine Ratio 27 (6-26); Blood Urea Nitrogen 17 mg/dL (8-23); Calcium 9.1 mg/dL (8.6-10.3); Carbon Dioxide 19 mEq/L (23-29); Chloride 106 mEq/L (98-107); Glucose 122 mg/dL (70-105); Osmolality,Calculated 287 (280-300); Potassium 3.7 mEq/L (3.5-5.1); Sodium 137 mEq/L (136-145); Troponin I < 0.03 ng/mL (< 0.04); eGFR For African Americans > 60 (> 60); eGFR For Non-African Americans > 60 (> 60)
[2019-05-09] MEDS ORDERED: Ondansetron 4 MG/2 ML VIAL IVP PRN (16:46)
[2019-05-09] MEDS ORDERED: Naloxone 0.4 MG/ML INJ IVP PRN (16:46)
[2019-05-09] MEDS ORDERED: Acetaminophen 325 MG TABLET PO PRN (16:46)
[2019-05-09] MEDS ORDERED: *HR* OxyCODONE/APAP 10/325 TABLET PO PRN (17:18)
[2019-05-09] MEDS ORDERED: Dextrose Gel 15 GM/37.5 ML TUBE PO PRN ×2 (17:27)
[2019-05-09] MEDS ORDERED: *HR* Dextrose 50 % in Water (Syg) 50 ML SYRINGE IVP PRN (17:27)
[2019-05-09] MEDS ORDERED: D5% in Water 1,000 ML IVC PRN (17:27)
[2019-05-09] MEDS: Insulin LISPRO 300 UNITS/3 ML VIAL SQ SCH (18:35)
[2019-05-09] MEDS ORDERED: Insulin DETEMIR 100 UNIT/ML X5UNITS SQ SCH (21:00)
[2019-05-09] MEDS: Topiramate 25 MG TABLET PO SCH (21:15)
[2019-05-09] MEDS: *HR* OxyCODONE Immed Rel 15 MG TABLET PO PRN (22:39)
[2019-05-10 02:06] LABS: Basophils # 0.1 K/mcL (0.0-0.2); Basophils % 0.8 %; Eosinophils # 0.1 K/mcL (0.0-0.6); Eosinophils % 2.2 %; Hematocrit 42.5 % (37.5-50.1); Hemoglobin 14.1 g/dL (12.9-16.9); Immature Granulocytes % 0.5 % (0-4); Lymphocytes # 1.9 K/mcL (0.6-4.6); Lymphocytes % 29.2 %; Mean Corpuscular HGB Conc 33.2 g/dL (31.6-35.5); Mean Corpuscular Hemoglobin 28.7 pg (28.0-33.3); Mean Corpuscular Volume 86.4 fL (83.0-100.0); Mean Platelet Volume 10.4 fL (9.4-12.4); Monocytes # 0.5 K/mcL (0.0-1.3); Monocytes % 8.5 %; Neutrophils # 3.7 K/mcL (1.6-8.9); Platelet Count 196 K/mcL (140-400); Red Blood Count 4.92 M/mcL (4.19-5.50); Red Cell Distribution Width 14.4 % (11.5-14.5); Segmented Neutrophils % 58.8 %; White Blood Count 6.3 K/mcL (4.3-11.1)
[2019-05-10 02:32] LABS: BUN/Creatinine Ratio 25 (6-26); Blood Urea Nitrogen 19 mg/dL (8-23); Calcium 8.9 mg/dL (8.6-10.3); Carbon Dioxide 21 mEq/L (23-29); Chloride 106 mEq/L (98-107); Chol/HDL Ratio 3.5 (0-4.9); Glucose 134 mg/dL (70-105); Magnesium 1.9 mg/dL (1.6-2.6); Osmolality,Calculated 286 (280-300); Potassium 3.6 mEq/L (3.5-5.1); Sodium 136 mEq/L (136-145); eGFR For African Americans > 60 (> 60); eGFR For Non-African Americans > 60 (> 60)
[2019-05-10] MEDS ORDERED: Regadenoson 0.4 MG/5 ML SYRINGE IVP ONE (06:26)
[2019-05-10] MEDS ORDERED: Perflutren Lipid Microsphere 1.3 ML in 0.9 % Sodium Chloride 8.7 ML IVP ONE (07:37)
[2019-05-10] MEDS: Insulin LISPRO 300 UNITS/3 ML VIAL SQ SCH (08:30)
[2019-05-10] MEDS ORDERED: Aspirin 81 MG TAB.CHEW PO SCH (09:00)
[2019-05-10] MEDS ORDERED: Lisinopril 20 MG TABLET PO SCH (09:00)
[2019-05-10] MEDS: Topiramate 25 MG TABLET PO SCH (10:52)
[2019-05-10] MEDS: *HR* OxyCODONE Immed Rel 15 MG TABLET PO PRN (10:52)
[2019-05-10 11:52] LABS: Estimated Average Glucose 171 mg/dl
[2019-05-10 16:24] VITALS: BP 118/74
== END 2019-05-10 19:08 | disposition home or self-care (01) ==
LOC: 3BNU 12:52 → EMEROOARM 12:52 → SUATTDRO 14:45 → 3BNU 15:20
PROVIDERS: ADMIT Pharmacist; ATTEND Pharmacist